=== PATIENT | male | born 2000 | race Two or more races ===

== ENCOUNTER 2020-02-06 22:49 | Emergency (ER) | payer OTHER ==
[2020-02-06] MEDS ORDERED: OXYCODONE-ACETAMINOPHEN 5-325 MG TABLET PO ONE (23:35)
[2020-02-06] MEDS ORDERED: CEPHALEXIN 500 MG CAPSULE PO ONE (23:35)
[2020-02-06] MEDS ORDERED: LIDOCAINE 1% INJ-PF (10 MG/ML) 30 ML SDV INJ ONE (23:36)
--- NOTE | 2020-02-06 23:39 | ER Document Report ---
ED Medical Screen (RME) - General Chief Complaint: Laceration Stated Complaint: INJURY TO LEFT HAND Time Seen by Provider: 02/06/20 23:34 Mode of Arrival: Ambulatory Information source: Patient Notes: 19-year-old male coming in today with right palmar laceration. States he fell onto metal and cut the palm of his left hand. Last tetanus 3 to 4 years ago. General: No acute distress Musculoskeletal: Small areas of skin avulsion to the palmar surfaces of the middle and ring fingers. There is a 2 to 3 cm laceration on the palmar surface of the left hand. Moves all digits well. Distal neurovascular exam is intact I have greeted and performed a rapid initial assessment of this patient. A comprehensive ED assessment and evaluation of the patient, analysis of test results and completion of the medical decision making process will be conducted by additional ED providers. - Related Data Allergies/Adverse Reactions: No Known Allergies Allergy (Unverified 02/06/20 23:34) Past Medical History - Social History Frequency of alcohol use: None Drug Abuse: None
[2020-02-06 23:53] VITALS: BP 128/72
--- NOTE | 2020-02-07 00:17 | RADIOLOGY REPORT (SQ) ---
EXAM DESCRIPTION: XR HAND 3 OR MORE VIEWS COMPLETED DATE/TME: 02/06/2020 23:35 CLINICAL HISTORY: 19 years, Male, deep lac to palm COMPARISON: None. NUMBER OF VIEWS: 3 TECHNIQUE: 3 view left hand LIMITATIONS: None. FINDINGS: Overlying bandaging artifact. No radiographic evidence for acute fracture or dislocation. No radiopaque foreign body IMPRESSION: No acute osseous abnormality copyright 2010 [employer]- All Rights Reserved
--- NOTE | 2020-02-07 06:48 | ER Document Report ---
ED General - General Chief Complaint: Laceration Stated Complaint: INJURY TO LEFT HAND Time Seen by Provider: 02/06/20 23:34 Mode of Arrival: Ambulatory - HPI Notes: Patient is a 19-year-old male with no medical history who presents for a left hand laceration that occurred prior to arrival. Patient states he was at work working on a roof, as he was trying to climb down the ladder he slipped and grabbed onto a piece of metal on the field and cut his hand. He denies any other injuries. He denies hitting his head or any loss of consciousness. Patient states his last tetanus vaccine was 3 years ago. - Related Data Allergies/Adverse Reactions: No Known Allergies Allergy (Unverified 02/06/20 23:34) Past Medical History - General Information source: Patient - Social History Smoking Status: Current Some Day Smoker Frequency of alcohol use: Heavy Drug Abuse: None Family History: Reviewed & Not Pertinent Review of Systems - Review of Systems Constitutional: No symptoms reported EENT: No symptoms reported Cardiovascular: No symptoms reported Respiratory: No symptoms reported Gastrointestinal: No symptoms reported Genitourinary: No symptoms reported Male Genitourinary: No symptoms reported Musculoskeletal: See HPI Skin: See HPI Hematologic/Lymphatic: No symptoms reported Neurological/Psychological: No symptoms reported Physical Exam - Vital signs Vitals: Temp Pulse Resp BP Pulse Ox 98.3 F 105 H 16 128/72 H 98 02/06/20 23:26 02/06/20 23:26 02/06/20 23:26 02/06/20 23:26 02/06/20 23:26 - Notes Notes: PHYSICAL EXAMINATION: GENERAL: Well-appearing, well-nourished and in no acute distress. HEAD: Atraumatic, normocephalic. EYES: sclera anicteric, conjunctiva are normal. ENT: Moist mucous membranes. NECK: Normal range of motion LUNGS: Normal work of breathing HEART: 2+ radial pulses bilaterally EXTREMITIES: 3.5 cm laceration to the palmar aspect of the left hand. Multiple areas of skin avulsions to the fingers on the left hand. Full range of motion of the left hand and fingers. Sensation intact. Palpable radial pulse on the left side. No pitting or edema. No cyanosis. NEUROLOGICAL: No focal neurological deficits. Moves all extremities spontaneously and on command. PSYCH: Normal mood, normal affect. SKIN: Warm, Dry, normal turgor, no rashes or lesions noted. Course - Re-evaluation Re-evalutation: Patient is a 19-year-old male who presents with a left hand laceration. Vital signs are within normal limits. On exam, 3.5 cm laceration to the palmar aspect of the left hand with multiple skin avulsions to the fingers. Laceration repair performed without complication. Patient will be discharged home with a prescription for Keflex 500 mg twice daily for 7 days. Patient instructed to follow-up in 7-10 days for suture removal. Return precautions given. Patient understands and is in agreement with plan. - Vital Signs Vital signs: Temp Pulse Resp BP Pulse Ox 98.3 F 105 H 16 128/72 H 98 02/06/20 23:26 02/06/20 23:26 02/06/20 23:26 02/06/20 23:26 02/06/20 23:26 Procedures - Laceration/Wound Repair Left Volar Head Wound length (cm): 3.5 Wound's Depth, Shape: Superficial Laceration pre-procedure: Sterile PPE Roberta link applied Anesthetic type: 1% Lidocaine Wound Repaired With: Sutures Suture Size/Type: 4:0, Ethilon Number of Sutures: 7 Post-procedure NV exam normal: Yes Complications: No Notes: The wound is 3.5 cm in length to the palmar aspect of the left hand. The wound was copiously irrigated with normal saline and surgical cleanser. The wound was explored for foreign bodies and none were found. The wound was prepped and draped in the normal sterile fashion. The wound was anesthetized using 1% lidocaine. The edges were reapproximated using 4-0 Ethilon. Bleeding was well controlled and the patient tolerated the procedure well. Discharge - Discharge Clinical Impression: Laceration Hand pain Qualifiers: Laterality: left Qualified Code(s): M79.642 - Pain in left hand Condition: Stable Disposition: HOME, SELF-CARE Additional Instructions: Laceration Care Your laceration has been sutured to keep the skin edges aligned during healing. The time of suture removal depends on the nature and location of your cut. Please follow the care instructions the doctor has outlined for you and return for further care, according to the schedule you've been given. Keep the wound and dressing clean. Unless you were told otherwise, you may shower daily, blotting the wound dry with a clean, unused towel. At other times, If the dressing gets wet or blood soaked, remove it and blot the wound dry, then reapply a new dressing. Unless you were instructed otherwise, dressings should be changed at least daily. If any signs of infection occur (swelling, redness, increasing tenderness, red streaks, tender lumps in the armpit or groin above the laceration, or fever), see the doctor immediately. Prescriptions: Cephalexin Monohydrate [Keflex 500 mg Capsule] 500 mg PO BID 7 Days #14 capsule Forms: Return to Work Referrals: [facility] [Provider Group] - Follow up as needed
== END 2020-02-07 06:45 | disposition home or self-care (01) ==
LOC: EDBD → ER 22:49
DX: S61.412A Laceration without foreign body of left hand, initial encounter (principal); S61.209A Unspecified open wound of unspecified finger without damage to nail, initial encounter; W45.8XXA Other foreign body or object entering through skin, initial encounter; Y93.H3 Activity, building and construction; Y99.0 Civilian activity done for income or pay; F17.200 Nicotine dependence, unspecified, uncomplicated
CPT/HCPCS: 99283; 73130; 12002; J3490

== ENCOUNTER 2020-02-15 20:25 | Emergency (ER) | payer OTHER ==
--- NOTE | 2020-02-15 20:48 | ER Document Report ---
HPI - HPI Patient complains to provider of: Suture removal Time Seen by Provider: 02/15/20 20:37 Onset: Last week Onset/Duration: Better Pain Level: Denies Context: Patient presents for suture removal to hand laceration. Patient denies any problems with the injury. Exacerbated by: Denies Relieved by: Denies Similar symptoms previously: No Recently seen / treated by doctor: Yes - ROS ROS below otherwise negative: Yes Systems Reviewed and Negative: Yes All other systems reviewed and negative - CONSTITUTIONAL Constitutional: DENIES: Fever - NEURO Neurology: DENIES: Weakness - MUSCULOSKELETAL Musculoskeletal: DENIES: Extremity pain - DERM Skin Color: Normal Skin Problems: Laceration - Sutured laceration to the palm of hand Past Medical History - General Information source: Patient - Social History Smoking Status: Current Every Day Smoker Chew tobacco use (# tins/day): No Frequency of alcohol use: Occasional Drug Abuse: None Occupation: Air conditioning Family History: Reviewed & Not Pertinent Patient has homicidal ideation: No - Medical History Medical History: Negative Surgical Hx: Negative Vertical Provider Document - CONSTITUTIONAL Agree With Documented VS: Yes Exam Limitations: No Limitations General Appearance: WD/WN, No Apparent Distress - HEENT HEENT: Atraumatic, Normocephalic - NECK Neck: Normal Inspection - RESPIRATORY Respiratory: No Respiratory Distress - CARDIOVASCULAR Pulses: Normal: Radial - MUSCULOSKELETAL/EXTREMETIES Musculoskeletal/Extremeties: MAEW, FROM, Non-Tender - NEURO Level of Consciousness: Awake, Alert, Appropriate Motor/Sensory: No Motor Deficit, No Sensory Deficit - DERM Integumentary: Warm, Dry, Laceration - Sutured 3.5 cm laceration to palmar surface of left hand, patient with intact sutures, wound edges approximated, no surrounding erythema. Course - Vital Signs Vital signs: Temp Pulse Resp BP Pulse Ox 98.3 F 68 16 131/58 H 100 02/15/20 20:45 02/15/20 20:30 02/15/20 20:30 02/15/20 20:30 02/15/20 20:30 Discharge - Discharge Clinical Impression: Encounter for removal of sutures Condition: Stable Disposition: HOME, SELF-CARE Instructions: Suture Removal Additional Instructions: Return immediately for any new or worsening symptoms Followup with your primary care provider as needed for recheck Referrals: RADHA BRANNON DO [ACTIVE STAFF] - Follow up as needed Print Language: Hebrew
[2020-02-15 21:03] VITALS: BP 120/64
== END 2020-02-15 21:05 | disposition home or self-care (01) ==
LOC: ER 20:25
DX: S61.412D Laceration without foreign body of left hand, subsequent encounter (principal); X58.XXXD Exposure to other specified factors, subsequent encounter